=== PATIENT | female | born 1935 | race Two or more races ===

== ENCOUNTER 2023-11-10 13:28 | Outpatient (AMB) | payer OTHER, SELFPAY ==
[2023-11-10 13:42] VITALS: BP 110/50; PULSE 60; O2SAT 98; BMI 39.6
--- NOTE | 2023-11-10 13:42 | HO.NEPHOV_ITS ---
HPI HPI Comments History of Present Illness Details 88-year-old patient of [facility] with CKD 3, diabetes type 2 requiring insulin for control, coronary disease status post PCI to LAD in 1996, hypertension, history of CVA, congestive heart failure with preserved ejection fraction, and obesity who comes in for follow up after her recent hospitalization for worsening shortness of breath. She had rise in serum creatinine which had settled to 1.8 at the time of hospital discharge. She has H/O proteinuria. She is not strict with low sodium diet. Her BP is at goal. She has been having some edema. She gets daily weights checked. She is currently on home oxygen. She does not have any hypoglycemias. There were no new complaints at the time of this office visit. [facility] Medical History (Updated 11/10/23 @ 15:01 by Hemant Carrion MD) Acute on chronic diastolic heart failure Acute and chronic respiratory failure Anemia Leukocytosis Hypoxia CHF exacerbation COPD (chronic obstructive pulmonary disease) Chronic kidney disease Type 2 diabetes mellitus Hyperlipidemia Hypertension Coronary artery disease Surgical History (Updated 11/10/23 @ 13:40 by Allison Gan MA) H/O colonoscopy History of cholecystectomy Social History (Updated 11/10/23 @ 13:48 by Allison Gan MA) Alcohol intake: never Patient Tobacco Use Status: Never used Tobacco Vital Signs 11/10/23 13:42 Height 5 ft Weight 203 lb BMI 39.6 BP 110/50 L Blood Pressure Location Rt brachial Position Sitting Pulse 60 Pulse Source Pulse Oximeter Pulse Oximetry (%) 98 Oxygen Delivery Method Room Air Physical Exam Vital Signs: Last Vital Signs Pulse 60 11/10/23 13:42 BP 110/50 L 11/10/23 13:42 Pulse Ox 98 11/10/23 13:42 Oxygen Delivery Method Room Air 11/10/23 13:42 BMI result Body Mass Index 39.6 Const Other: Wearing O2 by portable tank General: comfortable and no acute distress Orientation/consciousness: patient oriented x3 HEENT Head: Yes normocephalic Mouth: Normal oral and palatal mucosa present Eyes EOM: EOMs intact bilaterally Neck Neck: Yes supple Resp Auscultation: clear to auscultation bilaterally Cardio Jugular venous distension: no JVD Rate: regular rate Heart sounds: S1 normal heart sound present and S2 normal heart sound present GI Palpation (GI): Soft to palpation Auscultation: normal bowel sounds General: Yes no CVA tenderness Back/Spine/Pelvis Back: no CVA tenderness Skin General skin exam: no rashes or lesions noted Neuro General: patient oriented x3 and moves all extremities Extrem General: Yes edema Assessment & Plan Assessment & Plan (1) CKD (chronic kidney disease) stage 3, GFR 30-59 ml/min: Code(s): N18.30 - Chronic kidney disease, stage 3 unspecified Qualifiers: Chronic kidney disease stage 3 subtype: stage 3a (GFR 45-59) Qualified Code(s): N18.31 - Chronic kidney disease, stage 3a (2) DARVIN (acute kidney injury): Code(s): N17.9 - Acute kidney failure, unspecified (3) Hypertension: Code(s): I10 - Essential (primary) hypertension Qualifiers: Hypertension type: primary hypertension Qualified Code(s): I10 - Essential (primary) hypertension (4) Proteinuria due to type 2 diabetes mellitus: Code(s): E11.29 - Type 2 diabetes mellitus with other diabetic kidney complication; R80.9 - Proteinuria, unspecified Plan Izabel has chronic kidney disease for long time. 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 She recently had DARVIN due to cardiorenal syndrome. She still has edema. She has cut back sodium in the diet. She weighs herself every day. Her blood pressure has been at goal. I discontinued her amlodipine. I increased the isosorbide to 90 mg daily. She can continue the current dose of hydralazine. If her weight goes up more than 2 lb between 2 consecutive days she can take an extra 40 mg of Lasix on that particular day and get back to her routine dose the following day. Her diabetes under good control. I did not make any other medication changes today. Administrative Secretary used. Follow-up blood work ordered. Time spent retrieving data, patient encounter and documentation 33 minutes. Follow-up given. Orders: Orders Electrolytes Today N18.30 - Chronic kidney disease, stage 3 unspecified Blood Urea Nitrogen Today N18.30 - Chronic kidney disease, stage 3 unspecified Creatinine Today N18.30 - Chronic kidney disease, stage 3 unspecified Medications: New isosorbide mononitrate ER 90 mg (1.5 x 60 mg) PO DAILY 30 days 45 tabs 6RF Coding Level of Care Code Est Pt Level 4 (59186) Diagnoses Stage 3a chronic kidney disease N18.31 Chronic kidney disease stage 3 subtype: stage 3a (GFR 45-59) DARVIN (acute kidney injury) N17.9 Primary hypertension I10 Hypertension type: primary hypertension Proteinuria due to type 2 diabetes mellitus E11.29; R80.9 Results Reviewed Nephrology Results: No Data to Display
== END 2023-11-10 14:25 | disposition home or self-care (01) ==
PROVIDERS: PCP Family Medicine; Visit Provider Internal Medicine Nephrology
DX: N18.31 Chronic kidney disease, stage 3a (principal); N17.9 Acute kidney failure, unspecified; I10 Essential (primary) hypertension; E11.29 Type 2 diabetes mellitus with other diabetic kidney complication; R80.9 Proteinuria, unspecified
CPT/HCPCS: 99214

== ENCOUNTER → 2023-11-10 13:28 | Outpatient (BNVA) | payer OTHER, SELFPAY | PROVIDERS: PCP Family Medicine; Visit Provider Internal Medicine Nephrology | DX: I12.9 Hypertensive chronic kidney disease with stage 1 through stage 4 chronic kidney disease, or unspecified chronic kidney disease (principal); N18.31 Chronic kidney disease, stage 3a; N17.9 Acute kidney failure, unspecified; E11.29 Type 2 diabetes mellitus with other diabetic kidney complication; R80.9 Proteinuria, unspecified | CPT/HCPCS: 99212 ==